=== PATIENT | female | born 2000 | race Caucasian/White ===

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

== ENCOUNTER 2019-07-17 17:30 | Inpatient (IN) | payer OTHER ==
[~2019-07-17] VITALS: Ht 142.2 cm; Wt 60.0 kg
[~2019-07-17 17:30] MED LIST changes: +ACET500C5 PO; +ACET500T98 PO; +FAMO-96 PO; +IBUP-1542 PO; +ONDA4TAB14 PO; +PREN-93 PO
[2019-07-17 21:46] VITALS: BP 108/70; PULSE 60; RESP 60; Ht 142.2 cm; Wt 60.0 kg
[2019-07-18] MEDS ORDERED: LACTATED RINGER'S 1,000 ML IV PRN (01:02)
[2019-07-18] MEDS ORDERED: CARBOPROST 250 MCG INJ IM PRN (01:30)
[2019-07-18] MEDS ORDERED: BUTORPHANOL 2 MG INJ IV PRN (01:30)
[2019-07-18] MEDS ORDERED: IBUPROFEN 600 MG TAB PO PRN (01:30)
[2019-07-18] MEDS ORDERED: LIDOCAINE 1% (MPF) 30 ML INJ INJ PRN (01:30)
[2019-07-18] MEDS ORDERED: OXYTOCIN 30 UNITS/LR 500 ML IV PRN (01:30)
[2019-07-18] MEDS ORDERED: MISOPROSTOL 200 MCG TAB PR PRN (01:30)
[2019-07-18] MEDS ORDERED: OXYTOCIN 30 UNITS/LR 500 ML IV SCH ×3 (01:30→15:30)
[2019-07-18] MEDS ORDERED: METHYLERGONOVINE 0.2 MG INJ IM PRN (01:30)
[2019-07-18] MEDS: LACTATED RINGER'S 1,000 ML IV SCH ×3 (02:40→20:30)
[2019-07-19] MEDS: LACTATED RINGER'S 1,000 ML IV SCH (01:02)
[2019-07-19] MEDS ORDERED: DIPHENHYDRAMINE 50 MG INJ IV PRN (06:00)
[2019-07-19] MEDS ORDERED: HYDROmorphONE 0.5 MG/0.5 ML SYG IV PRN ×2 (06:00)
[2019-07-19] MEDS ORDERED: NALOXONE (0.4 MG/ML) INJ IV PRN (06:00)
[2019-07-19] MEDS ORDERED: ONDANSETRON 4 MG INJ IV PRN ×2 (06:00→09:30)
[2019-07-19] MEDS ORDERED: KETOROLAC 30 MG INJ IV PRN (06:00)
[2019-07-19] MEDS ORDERED: FENTAnyl 2MCG/ML-ROPIV 0.2% 100 ML BAG EPI SCH (06:00)
[2019-07-19] MEDS ORDERED: MINERAL OIL LIGHT 10 ML VIAL TOP ONE (08:00)
[2019-07-19] MEDS ORDERED: OXYTOCIN 30 UNITS/LR 500 ML IV SCH (09:13)
[2019-07-19] MEDS ORDERED: FAMOTIDINE 20 MG TAB PO SCH (09:30)
[2019-07-19] MEDS ORDERED: NACL 0.9% 3 ML SYG IV SCH (09:30)
[2019-07-19] MEDS ORDERED: ZOLPIDEM 5 MG TAB PO PRN (09:30)
[2019-07-19] MEDS ORDERED: DIPHENHYDRAMINE 25 MG CAP PO PRN (09:30)
[2019-07-19] MEDS ORDERED: OXYTOCIN 30 UNITS/LR 500 ML IV PRN (09:30)
[2019-07-19] MEDS ORDERED: METHYLERGONOVINE 0.2 MG INJ IM PRN (09:30)
[2019-07-19] MEDS ORDERED: WITCH HAZEL/GLYCERIN PAD PR PRN (09:30)
[2019-07-19] MEDS ORDERED: MISOPROSTOL 200 MCG TAB PR PRN (09:30)
[2019-07-19] MEDS ORDERED: ONDANSETRON (ODT) 4 MG TAB ODT PRN (09:30)
[2019-07-19] MEDS ORDERED: LANOLIN HPA 1 PKT TOP PRN (09:30)
[2019-07-19] MEDS ORDERED: CARBOPROST 250 MCG INJ IM PRN (09:30)
[2019-07-19] MEDS ORDERED: ACETAMINOPHEN 500 MG TAB PO PRN (09:30)
[2019-07-19] MEDS: SENNA/DOCUSATE NA (8.6MG/50MG) TAB PO SCH ×2 (09:30→21:23)
[2019-07-19] MEDS: IBUPROFEN 600 MG TAB PO SCH ×3 (12:00→23:54)
[2019-07-19 14:00] VITALS: BP 107/69; PULSE 62; RESP 16
[2019-07-19 20:30] VITALS: BP 104/58; PULSE 61; RESP 17
[2019-07-20 04:00] VITALS: BP 99/67; PULSE 59; RESP 18
[2019-07-20] MEDS: IBUPROFEN 600 MG TAB PO SCH ×3 (05:41→18:01)
[2019-07-20 07:50] VITALS: BP 111/57; PULSE 50; RESP 16
[2019-07-20 08:00] VITALS: BP 111/57; PULSE 50; RESP 16
[2019-07-20] MEDS: PRENATAL VITAMIN PO SCH (08:37)
[2019-07-20] MEDS: SENNA/DOCUSATE NA (8.6MG/50MG) TAB PO SCH ×2 (08:37→21:27)
[2019-07-20 16:01] VITALS: BP 99/60; PULSE 58; RESP 16
[2019-07-20 20:00] VITALS: BP 101/60; PULSE 58; RESP 19
[2019-07-21] MEDS: IBUPROFEN 600 MG TAB PO SCH ×3 (00:45→12:18)
[2019-07-21 04:00] VITALS: BP 102/63; PULSE 58; RESP 20
[2019-07-21 08:30] VITALS: BP 102/64; PULSE 73; RESP 18
[2019-07-21] MEDS ORDERED: VARICELLA VACCINE LIVE/PF 1,350 UNIT/0.5 ML ML SC* ONE (09:00)
[2019-07-21] MEDS ORDERED: MEASLES,MUMPS,RUBELLA VACCINE INJ SC* ONE (09:00)
[2019-07-21] MEDS ORDERED: DIPHTH/TET/ACEL PERTUSS (ADULT) 0.5 ML VIAL IM* ONE (09:00)
[2019-07-21] MEDS: PRENATAL VITAMIN PO SCH (09:27)
[2019-07-21] MEDS: SENNA/DOCUSATE NA (8.6MG/50MG) TAB PO SCH (09:27)
== END 2019-07-21 14:46 | disposition home or self-care (01) | DRG 807 ==
LOC: L-D 17:30 → OBT 17:30 → L-D 21:14 → OBT 07-18 00:58 → L-D 07-19 07:56 → PP1 07-19 13:34
PROVIDERS: ADMIT Obstetrics & Gynecology; ATTEND Obstetrics & Gynecology
PROC: 10E0XZZ Delivery of Products of Conception, External Approach (ICD-10-PCS; principal; 2019-07-19)
PROC: 0W8NXZZ Division of Female Perineum, External Approach (ICD-10-PCS; 2019-07-19)
PROC: 0HQ9XZZ Repair Perineum Skin, External Approach (ICD-10-PCS; 2019-07-19)
PROC: 0UQMXZZ Repair Vulva, External Approach (ICD-10-PCS; 2019-07-19)
DX: O36.8130 Decreased fetal movements, third trimester, not applicable or unspecified (principal); Z37.0 Single live birth; O70.0 First degree perineal laceration during delivery; Z3A.39 39 weeks gestation of pregnancy
CPT/HCPCS: 62322; 76815; 85014; 85018; 85025; 85610; 85730; 86592; 86850; 86900; 86901; 87340; 99464; G0463; J0595; J2590; J3010; J7120